=== PATIENT | female | born 1955 | race Caucasian/White ===

== ENCOUNTER 2017-03-13 11:01 | Emergency (ER) | payer OTHER ==
--- NOTE | ~2017-03-13 | CT16 ---
[facility] A Service of [facility] & [facility] RADIOLOGY TEXT RESULTS PATIENT: JAKUB COLES LOCATION: [facility] : 55 UNIT #: [id number] AGE: [address]: Jayesh Jim MD SEX: F ORDER DR: [id number] [facility] [address] [place], [place] [address] [id number] E MR#: [id number] #: [id number] NAME: JAKUB COLES : 1955 SEX: F STUDY DATE/TIME: 03/13/2017 15:36 UNIT: [facility] ROOM: STUDY DESCRIPTION: CT Angio Chest for PE Attending Physician: Jayesh Jim M.D. Ordering Physician: Jayesh Jim M.D. Primary Care Physician: Drew Lobato M.D. MEDICAL IMAGING REPORT This report is preliminary unless electronic signature is present EXAM CT angiogram of the chest with contrast pulmonary embolism protocol DATE 03/13/2017 HISTORY 61-year-old female shortness breath, congestion, blisters on the tongue for 1 week. Patient states shortness of breath since September 2016. COMPARISON AP portable chest 03/13/2017 at 13:01. No previous CT chest at this institution for comparison. PROCEDURE 2 mm axial images through the chest after IV contrast administration. 3-D coronal MIP reformatted images were obtained. This CT exam was performed with one or more of the following radiation dose reduction techniques: automatic control, adjustment of mA and/or kV according to patient size, and iterative reconstruction. FINDINGS No pulmonary embolism is seen. There is no thoracic aortic aneurysm or aortic dissection. Mild linear opacities are present within the bilateral lower lobes, right middle lobe and lingula, thought to represent subsegmental atelectasis. No dense lung consolidations are identified. No pericardial effusion. No pleural effusion. No pathologic adenopathy. Included portions of the upper abdominal organs are within normal limits. Mild calcific atherosclerosis in the proximal left subclavian artery, but no flow-limiting stenosis. Degenerative disc and endplate changes within the imaged thoracolumbar spine. No acute osseous abnormalities are identified. [facility] A Service of [facility] & [facility] RADIOLOGY TEXT RESULTS PATIENT: JAKUB COLES LOCATION: [facility] : 55 UNIT #: [id number] AGE: [address]: Jayesh Jim MD SEX: F ORDER DR: IMPRESSION 1. No pulmonary embolism, aortic aneurysm or aortic dissection. 2. Linear subsegmental atelectatic type changes in the bilateral lower lobes, right middle lobe and lingula. No consolidation. Dictated by... Katy Hernandez M.D. THIS IS AN ELECTRONICALLY VERIFIED REPORT Katy Hernandez M.D. at 03/15/2017 7:14 AM CORRINE/darin TD: 03/13/2017 16:42 JOB #: [id number] MEDICAL IMAGING REPORT Page 1 of 1 COPY
--- NOTE | ~2017-03-13 | EKG ---
PATIENT: JAKUB COLES UNIT #: [id number] Ventricular Rate: 85 BPM Atrial Rate: 85 BPM P-R Interval: 150 ms QRS Duration: 84 ms Q-T Interval: 376 ms QTC Calculation(Bezet): 447 ms P Edwards: 35 degrees Calculated R Edwards: 73 degrees Calculated T Edwards: 31 degrees Diagnosis Line: Normal sinus rhythm with sinus arrhythmia Diagnosis Line: Normal ECG Diagnosis Line: No previous ECGs available Diagnosis Line: Confirmed by WADE YOON MD ([id number]) on 03/14/2017 Diagnosis Line: 10:36:41 AM INTERPRETING MD: KARRIE EPPS
--- NOTE | ~2017-03-13 | CR72 ---
[facility] A Service of [facility] RADIOLOGY TEXT RESULTS PATIENT: JAKUB COLES LOCATION: [facility] : 55 UNIT #: [id number] AGE: [address]: Jayesh Jim MD SEX: F ORDER DR: [id number] [facility] [address] [place], [place] [address] [id number] E MR#: [id number] #: [id number] NAME: JAKUB COLES : 1955 SEX: F STUDY DATE/TIME: 03/13/2017 UNIT: [facility] ROOM: STUDY DESCRIPTION: CR Chest Single View Portable Attending Physician: Jayesh Jim M.D. Ordering Physician: Jayesh Jim M.D. Primary Care Physician: Drew Lobato M.D. MEDICAL IMAGING REPORT This report is preliminary unless electronic signature is present EXAM Chest portable 03/13/2017 1301 hours HISTORY 61-year-old woman complaining of shortness of air today. COMPARISON None FINDINGS Portable upright chest demonstrates slightly low lung volumes. The heart size is within normal limits. There is a mildly tortuous atherosclerotic aorta. There is interstitial prominence in the lung bases which could simply be due to vascular crowding and atelectasis although an element of interstitial edema is difficult to exclude. The upper lungs are clear, and there are no effusions. IMPRESSION Slightly low lung volumes with bibasilar interstitial prominence. This could simply be due to vascular crowding and atelectasis although it is difficult to exclude an element of interstitial edema. There is no cardiomegaly or pleural fluid. There is a tortuous atherosclerotic aorta. Dictated by... Galina Flanagan M.D. THIS IS AN ELECTRONICALLY VERIFIED REPORT Galina Flanagan M.D. at 03/13/2017 2:29 PM Valeria TD: 03/13/2017 13:43 [facility] A Service of [facility] RADIOLOGY TEXT RESULTS PATIENT: JAKUB COLES LOCATION: [facility] #: [id number] : 55 UNIT #: [id number] AGE: [address]: Jayesh Jim MD SEX: F ORDER DR: GREER #: [id number] MEDICAL IMAGING REPORT Page 1 of 1 COPY
[2017-03-13 13:05] LABS: BASOPHIL# 0.1 X10e3 (0-0.3); BASOPHIL% 0.6 % (0-2.5); EOSINOPHIL# 0.2 X10e3 (0-0.7); EOSINOPHIL% 2.7 % (0.0-7.0); HEMATOCRIT 44.6 % (35.0-45.0); HEMOGLOBIN 14.8 gm/dL (12.0-16.0); LYMPHOCYTE# 3.2 X10e3 (1.0-3.5); LYMPHOCYTE% 35.2 % (17.0-45.0); MEAN CORPUSCULAR HEMOGLOBIN 29.6 PG (28-34); MEAN CORPUSCULAR HGB CONC 33.2 g/dL (30-36); MONOCYTE# 0.8 X10e3 (0-1.0); MONOCYTE% 8.6 % (3.0-12.0); NEUTROPHIL# 4.8 X10e3 (1.5-7.1); NEUTROPHIL% 52.9 % (40-75); PLATELET COUNT 228 X10e3 (140-420); RED BLOOD COUNT 5.01 X10e (3.90-5.30); RED CELL DISTRIBUTION WIDTH 14.2 % (11.0-15.5); WHITE BLOOD COUNT 9.1 X10e3 (4.0-10.5)
[2017-03-13 13:06] LABS: DIFF IND NO
[2017-03-13 13:12] LABS: POC - CKMB <1.0 ng/mL (0.0-7.9); POC - TROPONIN <0.05 ng/mL (<=0.05)
[2017-03-13 13:40] LABS: BILIRUBIN, DIRECT 0.1 mg/dL (0.0-0.2); BILIRUBIN,INDIRECT 0.2 mg/dL (0.0-0.9); BILIRUBIN,TOTAL 0.3 mg/dL (0.2-2.0); BUN/CREATININE RATIO 18.57; CALCIUM SERUM 9.3 mg/dL (8.4-10.2); CREATININE SERUM 0.7 mg/dL (0.6-1.4); GLOM FILT RATE Estimated 93.5 mL/min (>60); POTASSIUM 4.3 mmol/L (3.5-5.1); PROTEIN TOTAL SERUM 7.6 g/dL (6.0-8.3)
== END 2017-03-13 16:46 | disposition left against medical advice (07) ==
LOC: CED 11:01
PROVIDERS: Emergency Medicine
DX: J96.01 Acute respiratory failure with hypoxia (principal); R06.02 Shortness of breath; F17.210 Nicotine dependence, cigarettes, uncomplicated; J98.01 Acute bronchospasm
CPT/HCPCS: 71010; 71275; 80048; 80076; 82553; 83880; 84484; 85025; 87040; 93005; 94640; 96374; 99284; J2930; Q9967